=== PATIENT | female | born 1975 | race Caucasian/White ===

== ENCOUNTER 2023-07-05 11:42 | Outpatient (CLI) | payer MEDICARE | END 2023-07-05 11:43 | disposition home or self-care (01) | LOC: CSHCT 11:42 | PROVIDERS: ATTEND Family Medicine | DX: R60.0 Localized edema (principal); R06.02 Shortness of breath; R79.89 Other specified abnormal findings of blood chemistry; J18.9 Pneumonia, unspecified organism | CPT/HCPCS: 71275 ==

== ENCOUNTER 2025-01-22 02:08 | Emergency (ER) | payer OTHER, MEDICAID ==
[2025-01-22 03:21] LABS: Glucose, Urine (Dipstick) Normal (Negative); Leukocyte 25 (Negative); Protein, Urine (Dipstick) 30 mg/dl (Neg-Trace); Specific Gravity, Urine 1.025 (1.005-1.030)
[2025-01-22 03:29] LABS: Bacteria/HPF 2+ HPF (None Seen); CAUTI Indications for Culture Acute Hematuria; RBC/HPF 0-3 HPF (0-3)
[2025-01-22 03:30] LABS: Urine Culture Reflex No No
[2025-01-22 04:20] LABS: #Basophils 0.08 10x3/uL (0.0-0.2); #Eosinophils 0.19 10x3/uL (0.0-0.5); #Monocytes 0.58 10x3/uL (0.0-1.1); #Neutrophils 15.48 10x3/uL (1.5-8.4); %Basophils 0.5 % (0.0-2.0); %Eosinophils 1.1 % (0.0-6.0); %Lymphocytes 4.4 % (18.0-47.0); %Monocytes 3.4 % (0.0-10.0); %Neutrophils 90.2 % (40.0-75.0); Hematocrit 41.1 % (34.9-44.5); Hemoglobin 14.0 g/dL (12.0-15.5); Mean Corpuscular Hemoglobin 34.7 pg (27.0-33.0); Mean Corpuscular Volume 101.7 fL (81.6-98.3); Platelet Count 138 10x3/uL (150-450); Red Blood Cell (RBC) Count 4.04 10x6/uL (3.90-5.03); White Blood Cell (WBC) Count 17.15 10x3/uL (3.5-10.5)
[2025-01-22 04:35] LABS: ALT (SGPT) 59 U/L (Less than 34); AST (SGOT) 57 U/L (11-34); Albumin 3.0 g/dL (3.1-4.5); Alkaline Phosphatase 102 U/L (40-110); Anion Gap 13 mmol/L (10-20); BUN (Urea Nitrogen) 12 mg/dL (7.0-18.7); Bilirubin, Total 1.7 mg/dL (0.3-1.2); Calc. Creatinine Clearance 0 mL/min (70-130); Calcium 8.8 mg/dL (7.8-10.44); Carbon Dioxide 23 mmol/L (22-29); Chloride 106 mmol/L (98-107); Globulin 4.0 g/dL (2.4-3.5); Glucose 100 mg/dL (70-105); Potassium 3.9 mmol/L (3.5-5.1); Sodium 138 mmol/L (136-145)
== END 2025-01-22 10:29 | disposition home or self-care (01) ==
LOC: CSHERS 02:08
DX: J18.9 Pneumonia, unspecified organism (principal)
CPT/HCPCS: 36415; 71045; 80053; 81001; 83605; 85025; 87428; 93005; 94760